=== PATIENT | male | born 1950 | race Caucasian/White ===

== ENCOUNTER 2020-06-14 07:45 | Day surgery (SDC) | payer MEDICARE, BC ==
[~2020-06-14 07:45] MED LIST: Lactated Ringers 1,000 ML IV SCH; Lidocaine 1%/Sod Bicarbonate in NS 8.4% 1 ML Syringe IDERM PRN; Sodium Chloride 0.9% 10 ML Syringe FLUSH PRN
[2020-06-14] MEDS ORDERED: Lidocaine 1% 4 ML ONE (08:26)
[2020-06-14] MEDS ORDERED: Propofol 200 MG/20 ML SDV ONE ×3 (08:26→09:38)
--- NOTE | 2020-06-14 09:00 | PCM.PREANE ---
Preanesthetic Assessment - Procedure Proposed Procedure: Colonoscopy - Anesthesia/Transfusion/Family Hx Anesthesia History: Prior Anesthesia Without Reaction Family History of Anesthesia Reaction: No - Review of Systems General: No Symptoms Pulmonary: Other (Sleep Apnea with CPAP use.) Cardiovascular: No Symptoms Gastrointestinal: No Symptoms Neurological: No Symptoms Other: Reports: None (Obesity BMI 41), Diabetes (Type II, Blood Glucose 114mg/dl) - Physical Assessment Vital Signs: Last Vital Signs Temp 36.8 C 06/14/20 07:50 Pulse 86 06/14/20 07:50 Resp 20 06/14/20 07:50 BP 137/78 06/14/20 07:50 Pulse Ox 97 06/14/20 07:50 Height: 1.65 m Weight: 112.491 kg ASA Class: 3 Mental Status: Alert & Oriented x3 Airway Class: Mallampati = 2 Dentition: Reports: Caries (Filled) Thyro-Mental Finger Breadths: 2 Mouth Opening Finger Breadths: 3 ROM/Head Extension: Full Lungs: Clear to Auscultation, Normal Respiratory Effort Cardiovascular: Regular Rate, Regular Rhythm - Lab Values: Laboratory Last Values POC Glucose 114 mg/dL (80-115) 06/14/20 08:10 - Allergies Allergies/Adverse Reactions: Allergies Allergy/AdvReac Type Severity Reaction Status Date / Time bee venom protein (honey bee) Allergy Airway Verified 06/11/20 09:51 Tightness - Anesthesia Plan Beta Dirk: Metoprolol Med Last Dose Date: 06/14/20 Med Last Dose Time: 06:00 - Acknowledgements Anesthesia Type Planned: MAC Pt an Appropriate Candidate for the Planned Anesthesia: Yes Alternatives and Risks of Anesthesia Discussed w Pt/Guardian: Yes Pt/Guardian Understands and Agrees with Anesthesia Plan: Yes PreAnesthesia Questionnaire HEENT History: Reports: Cataract, Impaired Vision Other HEENT History: eye surgery, gunderson retinal coagulation, cataract. Cardiovascular History: Reports: High Cholesterol, Hypertension Respiratory History: Reports: Sleep Apnea Gastrointestinal History: Reports: None Genitourinary History: Reports: None LINE ANALYST History: Reports: None Musculoskeletal History: Reports: None Neurological History: Reports: None Psychiatric History: Reports: None Endocrine/Metabolic History: Reports: Diabetes, Type II Hematologic History: Reports: None Immunologic History: Reports: None Dermatologic History: Reports: None - Past Surgical History Head Surgeries/Procedures: Reports: None Respiratory Surgical History: Reports: None GI Surgical History: Reports: Colonoscopy Other GI Surgeries/Procedures: hx of polyps from previous colonoscopy. Female Surgical History: Reports: None Male Surgical History: Reports: None Endocrine Surgical History: Reports: None Neurological Surgical History: Reports: None Musculoskeletal Surgical History: Reports: None Dermatological Surgical History: Reports: None - SUBSTANCE USE Smoking Status *Q: Never Smoker Recreational Drug Use History: No - HOME MEDS Home Medications: Home Meds Aspirin [Halfprin] 81 mg PO DAILY 01/09/20 [History] Benazepril HCl 40 mg PO BID 01/09/20 [History] Dulaglutide [Trulicity] 0.5 ml SQ WE 01/09/20 [History] Metoprolol Succinate 100 mg PO DAILY 01/09/20 [History] Nitroglycerin [Nitrostat] 0.4 mg PO ASDIRECTED 01/09/20 [History] Rosuvastatin Calcium 10 mg PO BEDTIME 01/09/20 [History] Spironolactone [Aldactone] 25 mg PO QAM 01/09/20 [History] Timolol [Betimol] 1 drop EYELF BID 01/09/20 [History] amLODIPine Besylate [Norvasc] 10 mg PO DAILY 01/09/20 [History] hydroCHLOROthiazide [Hydrochlorothiazide] 12.5 mg PO DAILY 01/09/20 [History] - CURRENT (IN HOUSE) MEDS Current Meds: Current Medications Lactated Ringer's (Ringers, Lactated) 1,000 mls @ 125 mls/hr IV ASDIRECTED YOLANDA Stop: 06/14/20 23:00 Last Admin: 06/14/20 08:10 Dose: 125 mls/hr Documented by: Lidocaine/Sodium Bicarbonate (Buffered Lidocaine 1% In Ns 8.4%) 0.25 ml IDERM ONETIME PRN PRN Reason: Prior to IV Start Stop: 06/14/20 18:00 Last Admin: 06/14/20 08:09 Dose: 0.25 ml Documented by: Sodium Chloride (Saline Flush) 10 ml FLUSH ASDIRECTED PRN PRN Reason: Keep Vein Open Stop: 06/14/20 18:00 Discontinued Medications Lactated Ringer's (Ringers, Lactated) 1,000 mls @ 125 mls/hr IV ASDIRECTED YOLANDA Stop: 01/12/20 23:00 Lidocaine HCl (Xylocaine-Mpf 1%) Confirm Administered Dose 4 mls @ as directed .ROUTE .STK-MED ONE Stop: 06/14/20 08:27 Lidocaine/Sodium Bicarbonate (Buffered Lidocaine 1% In Ns 8.4%) 0.25 ml IDERM ONETIME PRN PRN Reason: Prior to IV Start Stop: 01/12/20 18:00 Propofol (Diprivan 20 Ml) Confirm Administered Dose 200 mg .ROUTE .STK-MED ONE Stop: 06/14/20 08:27 Sodium Chloride (Saline Flush) 10 ml FLUSH ASDIRECTED PRN PRN Reason: Keep Vein Open Stop: 01/12/20 18:00
--- NOTE | 2020-06-14 10:01 | PCM48HPAN ---
Post Anesthesia Note - EVALUATION WITHIN 48HRS OF ANESTHETIC Vital Signs in Normal Range: Yes Patient Participated in Evaluation: Yes Respiratory Function Stable: Yes Airway Patent: Yes Cardiovascular Function Stable: Yes Hydration Status Stable: Yes Pain Control Satisfactory: Yes Nausea and Vomiting Control Satisfactory: Yes Mental Status Recovered: Yes Vital Signs: Last Vital Signs Temp 36.8 C 06/14/20 07:50 Pulse 86 06/14/20 07:50 Resp 20 06/14/20 07:50 BP 137/78 06/14/20 07:50 Pulse Ox 97 06/14/20 07:50
--- NOTE | 2020-06-14 15:34 | PROC ---
DATE OF OPERATION: 06/14/2020 SURGEON: Jan Ramey MD PREOPERATIVE DIAGNOSES: Prior polyps and need for surveillance colonoscopy. POSTOPERATIVE DIAGNOSES: Prior polyps and need for surveillance colonoscopy. PROCEDURE: Colonoscopy. FINDINGS: Normal colonoscopy. ANESTHESIA: Monitored anesthesia care. COMPLICATIONS: None. INDICATIONS AND CONSENT: The patient is a 69-year-old male who underwent colonoscopy about 3 years ago, and 2 polyps were removed at that time. Polyps were adenomatous. The patient was recommend to undergo another colonoscopy in 3 years. This is the time that the patient needed surveillance colonoscopy. Saw the patient in clinic. We discussed risks, benefits, and alternatives, and informed consent was obtained. DETAILS OF PROCEDURE: The patient was taken to the procedure room, placed in left lateral decubitus position. Monitored anesthesia care was induced. Time-out was performed. We began the exam with perianal exam and digital rectal exam, which were normal. Then, the scope was placed and advanced all the way to the cecum. Appendiceal orifice was patulous but normal appearing. Ileocecal valve was photographed. Cecum was normal. Ascending, hepatic flexure, transverse colon, and the left- sided colon were all normal. On retroflexion, the rectum was normal. Then, air was suctioned out. Then, the scope was withdrawn. EBL was none. The patient tolerated the procedure well and was awoken from monitored anesthesia and taken to the PACU. RECOMMENDATIONS: For the patient to follow up with another surveillance colonoscopy in 5 years. MMODAL /[id number]
== END 2020-06-14 10:40 | disposition home or self-care (01) ==
LOC: JD.SDS 07:45
PROVIDERS: ATTEND Surgery
DX: Z12.11 Encounter for screening for malignant neoplasm of colon (principal); E78.00 Pure hypercholesterolemia, unspecified; I10 Essential (primary) hypertension; E11.9 Type 2 diabetes mellitus without complications; G47.30 Sleep apnea, unspecified; Z79.899 Other long term (current) drug therapy; Z86.010 Personal history of colon polyps; Z98.890 Other specified postprocedural states; Z91.030 Bee allergy status; Z79.82 Long term (current) use of aspirin; Z79.84 Long term (current) use of oral hypoglycemic drugs
CPT/HCPCS: 82962; G0105; J2001; J2704; J7120; 00812